=== PATIENT | male | born 1965 | race American Indian/Alaskan Native ===

== ENCOUNTER 2019-07-16 13:30 | Emergency (ER) | payer MEDICAID ==
--- NOTE | 2019-07-16 14:29 | ED Physician Documentation ---
PD HPI HEENT - Stated complaint Stated Complaint: LT SIDE FACE PAIN - Chief complaint Chief Complaint: Heent - History obtained from History obtained from: Patient - History of Present Illness Timing - onset: Yesterday (Dental pain since yesterday. He has known cavities but missed an appointment with his dentist because his grazhm-xg-ibe is dying. No facial swelling or fevers.) Review of Systems Constitutional: denies: Fever, Chills Nose: denies: Rhinorrhea / runny nose, Congestion Throat: reports: Dental pain / toothache. denies: Sore throat PD PAST MEDICAL HISTORY - Present Medications Home Medications: Ambulatory Orders Medication Instructions Recorded Confirmed Clindamycin HCl [Clindamycin 300MG 300 mg PO Q6H #40 capsule 07/16/19 CAP] Oxycodone HCl/Acetaminophen 1 - 2 each PO Q6H PRN #14 tablet 07/16/19 [Percocet 5-325 mg Tablet] - Allergies Allergies/Adverse Reactions: Allergies Allergy/AdvReac Type Severity Reaction Status Date / Time Penicillins Allergy Unknown Verified 07/16/19 13:39 PD ED PE NORMAL - Vitals Vital signs reviewed: Yes - General General: Alert and oriented X 3, No acute distress - HEENT HEENT: Other (Generally poor dentition with a lot of cavities; Tender Last Maxillary molar, no facial swelling or trismus.) - Neck Neck: Supple, no meningeal sign, No bony TTP - Neuro Neuro: Alert and oriented X 3, Normal speech - Psych Psych: Normal mood Results - Vitals Vitals: Vital Signs - 24 hr 07/16/19 13:39 Temperature 36.5 C Heart Rate 68 Respiratory 14 Rate Blood Pressure 180/90 H O2 Saturation 99 Oxygen O2 Source Room air Departure - Departure Disposition: 01 Home, Self Care Clinical Impression: Pain due to dental caries Condition: Good Record reviewed to determine appropriate education?: Yes Instructions: ED Tooth Pain Prescriptions: Clindamycin HCl [Clindamycin 300MG CAP] 300 mg PO Q6H #40 capsule Oxycodone HCl/Acetaminophen [Percocet 5-325 mg Tablet] 1 - 2 each PO Q6H PRN #14 tablet PRN Reason: pain Comments: It is very important that you follow-up with a dentist. When it comes to dental problems like yours, the emergency department can only offer a short-term solution to your long-term problem. A couple of low cost options for dental care include: [facility] in [place], calls [phone] for an appointment Or [facility] in [place], call [phone] for an appointment. Do not drink or drive while taking narcotic pain medication. Note that many narcotic pain relievers also contain Tylenol/acetaminophen. Please ensure that your total dose of acetaminophen from all sources does not exceed 3 g (3000 mg) per day. You may get constipated while on this medication. Take a stool softener such as Colace twice a day while you are on it. Also add an buas-icg-ezkevtk laxative such as senna or MiraLAX on any day that you do not have a bowel movement. If you received a narcotic pain medication or sedative while in the emergency department, do not drive for the next 24 hours. Your blood pressure was elevated today on check into the emergency department. This does not mean that you have hypertension, it is a common phenomenon to come to the emergency department and have elevated blood pressure. I recommend that you see your primary care physician within the week to have it rechecked when you are feeling better.
[2019-07-16 14:43] VITALS: BP 169/97
== END 2019-07-16 14:46 | disposition home or self-care (01) ==
LOC: ED 13:30
DX: K02.9 Dental caries, unspecified (principal); R03.0 Elevated blood-pressure reading, without diagnosis of hypertension
CPT/HCPCS: 99282; 99284

== ENCOUNTER 2020-01-19 14:48 | Emergency (ER) | payer MEDICAID ==
[2020-01-19 14:57] VITALS: BP 164/85
--- NOTE | 2020-01-19 15:16 | ED Physician Documentation ---
PD [facility] HEENT - Stated complaint Stated Complaint: TOOTH PAIN - Chief complaint Chief Complaint: Heent - History obtained from History obtained from: Patient - History of Present Illness Timing - onset: How many weeks ago (12) Timing - duration: Months Timing - details: Gradual onset, Waxing and waning Pain level max: 10 Pain level now: 8 Location: Tooth Improves: Medication Worsens: Other (chewing, cold air, breathing) Associated symptoms: No: Fever, Congestion, Trismus, Unable to swallow, Facial swelling, Headache Similar symptoms before: Diagnosis - Additional information Additional information: 54-year-old male presents to the emergency department with about 3 months worth of tooth pain in his upper mouth. Patient reports that prior to the ID- pandemic he was scheduled to see a dentist to have fillings replaced or crown removed however with his appointments have been canceled. Since then he has had pretty chronic pain that is waxed and waned and has occasionally improved with a course of antibiotics. He has a dental appointment pending in 4 days. However over the last 48 hours the pain in tooth #7 and #1 has become excruciating. He is taken nearly 3000 mg of ibuprofen and 3500 mg of Tylenol without relief. He has also attempted pjyt-wtv-[id number] Orajel. He has no fevers, no trismus. he has normal swallowing and normal phonation. Review of Systems Constitutional: denies: Fever, Chills, Myalgias Nose: denies: Rhinorrhea / runny nose, Epistaxis Throat: reports: Dental pain / toothache. denies: Oral lesions / sores, Sore throat Cardiac: denies: Chest pain / pressure, Palpitations Respiratory: denies: Dyspnea, Cough GI: denies: Abdominal Pain : denies: Dysuria Skin: denies: Rash, Lesions Musculoskeletal: denies: Neck pain, Back pain PD PAST MEDICAL HISTORY - Present Medications Home Medications: Ambulatory Orders Medication Instructions Recorded Confirmed Clindamycin HCl [Clindamycin 300MG 300 mg PO Q6H #40 capsule 07/16/19 CAP] Oxycodone HCl/Acetaminophen 1 - 2 each PO Q6H PRN #14 tablet 07/16/19 [Percocet 5-325 mg Tablet] Cephalexin [Keflex] 500 mg PO Q6H #28 capsule 01/19/20 Hydrocodone/Acetaminophen [Hayward 1 each PO BID #8 tablet 01/19/20 5-325 Tablet] - Allergies Allergies/Adverse Reactions: Allergies Allergy/AdvReac Type Severity Reaction Status Date / Time Penicillins Allergy Unknown Verified 01/19/20 14:57 PD ED PE NORMAL - General General: Alert and oriented X 3, No acute distress, Well developed/nourished - HEENT HEENT: PERRL, EOMI, Other (Patient has globally abnormal dentition. Multiple caries. There is gumline swelling and fluctuance above tooth #7. Tooth #1 with extensive decay and cracking.No swelling or trismus. Patient has normal phonation and normal swallow) - Neck Neck: No adenopathy - Cardiac Cardiac: RRR, No murmur - Respiratory Respiratory: No respiratory distress Results - Vitals Vitals: Vital Signs - 24 hr 01/19/20 14:55 Temperature 36.3 C L Heart Rate 75 Respiratory 16 Rate Blood Pressure 164/85 H O2 Saturation 96 Oxygen O2 Source Room air PD MEDICAL DECISION MAKING - ED course Complexity details: re-evaluated patient, d/w patient ED course: 54-year-old gentleman presents to the emergency department with about 3 months duration of tooth pain in the upper jaw. - He has a pending dental appointment on Friday which is in 5 days. - Patient has a evidence of gumline swelling and abscess above tooth #1. We will start him on antibiotic. - Advise close follow-up with a dentist on Friday as scheduled. - We will also prescribe a very limited number of Hayward to help with analgesia until he is able to see the dentist. - We had extensive discussion regarding appropriate use of [id number]-[id number] Tylenol and ibuprofen to prevent toxicity Departure - Departure Disposition: 01 Home, Self Care Clinical Impression: Dental abscess, Pain due to dental caries Condition: Stable Record reviewed to determine appropriate education?: Yes Instructions: ED Tooth Pain, ED Cavity Dental Prescriptions: Cephalexin [Keflex] 500 mg PO Q6H #28 capsule Hydrocodone/Acetaminophen [Hayward 5-325 Tablet] 1 each PO BID #8 tablet Comments: Walt do not miss the appointment with your dentist on Friday. It looks like you have a new abscess forming in the front of your mouth. So I prescribed antibiotics for this. Please take as directed. Please limit the amount of Tylenol and ibuprofen you are using at home over use of these medications can cause kidney and liver damage. I have prescribed a very limited number of Hayward to help with pain. Use very sparingly the emergency department cannot refill. Return to the emergency department if you have fevers, facial swelling, cannot talk or swallow normally.
== END 2020-01-19 15:22 | disposition home or self-care (01) ==
LOC: ED 14:48
DX: K04.7 Periapical abscess without sinus (principal); K02.9 Dental caries, unspecified
CPT/HCPCS: 99282; 99284

== ENCOUNTER 2020-08-14 17:12 | Outpatient (CLI) | payer MEDICAID | END 2020-08-14 17:13 | disposition home or self-care (01) | LOC: COV 17:12 | PROVIDERS: ATTEND Family Medicine | DX: Z20.822 Contact with and (suspected) exposure to COVID-19 (principal) ==

== ENCOUNTER 2021-02-17 13:35 | Emergency (ER) | payer MEDICAID ==
[2021-02-17 17:01] VITALS: BP 153/75
[2021-02-17] MEDS ORDERED: BACITRACIN ZINC OINT 1 PACKET TOP STA (17:06)
[2021-02-17] MEDS ORDERED: LIDOCAINE 1% 2 ML VIAL MC ONE (17:06)
[2021-02-17] MEDS ORDERED: TETANUS/DIPHTHERIA/PERTUSSIS 0.5 ML SYRINGE IM ONE (17:06)
[2021-02-17] MEDS ORDERED: cefTRIAXone 1 GM VIAL IM STA (17:06)
--- NOTE | 2021-02-17 17:09 | ED Physician Documentation ---
History of Present Illness - Stated complaint Stated Complaint: SWELLING RT ARM - Chief complaint Chief Complaint: Wound - Additonal information Additional information: 56-year-old male presents emergency department for evaluation of a right mid forearm infection. Reports that he noted a small pimple yesterday at the site where he previously had a Bug bite. When he woke up this morning there was a large dome of purulence, increased erythema as well as red streaking extending up the arm. He denies any fevers. Unsure of his last tetanus. Review of Systems Constitutional: denies: Fever Nose: reports: Reviewed and negative Throat: reports: Reviewed and negative Cardiac: reports: Reviewed and negative Respiratory: reports: Reviewed and negative GI: reports: Reviewed and negative Skin: reports: Lesions (Right forearm) Musculoskeletal: reports: Reviewed and negative Neurologic: reports: Reviewed and negative PD PAST MEDICAL HISTORY - Past Surgical History Past Surgical History: No - Present Medications Home Medications: Ambulatory Orders Medication Instructions Recorded Confirmed Sulfamethox/Trimeth 800/160 1 each PO BID #14 tablet 02/17/21 [Bactrim Ds 800/160] - Allergies Allergies/Adverse Reactions: Allergies Allergy/AdvReac Type Severity Reaction Status Date / Time Penicillins Allergy Unknown Unknown Verified 02/17/21 17:03 - Social History Does the pt smoke?: Yes Smoking Status: Heavy tobacco smoker Does the pt drink ETOH?: Yes Does the pt have substance abuse?: No - POLST Patient has POLST: No PD ED PE EXPANDED - General General: Alert, No acute distress - Cardiac Cardiac: Regular Rate, Radial strong equal, Pedal strong equal, Cap refill < 2 sec. No: Murmur Present - Respiratory Respiratory: Clear to ausultation sam. No: Distress, Labored - Abdomen Abdomen: Normal Bowel sounds. No: Tender to palpation - Derm Derm: Normal color, Warm and dry, Other (Small purulent dome on the right midforearm unroofed with purulence. There is no abscess formation. Area of erythema and induration 3 x 5 cm with lymphangitis streaking up the forearm) Results - Vitals Vitals: Vital Signs - 24 hr 02/17/21 02/17/21 13:53 17:00 Temperature 36.9 C 36.6 C Heart Rate 80 80 Respiratory 15 18 Rate Blood Pressure 141/90 H 153/75 H O2 Saturation 99 97 Oxygen O2 Source Room air PD MEDICAL DECISION MAKING - ED course Complexity details: reviewed results, re-evaluated patient, d/w family ED course: 56-year-old male presents emergency department for evaluation of a right forearm Infection with some associated lymphangitis. There have been no fevers and he otherwise appears unremarkable sparing mild hypertension. Patient was given a gram of ceftriaxone here in the emergency department and will be started on Bactrim twice daily for the next week. Advised mupirocin ointment as well as warm compress. Emergent return precautions discussed. Departure - Departure Disposition: Home, Self Care Clinical Impression: Cellulitis of right forearm, Acute lymphangitis of right forearm Condition: Stable Record reviewed to determine appropriate education?: Yes Instructions: ED Staph Infec Abx Tx Only Prescriptions: Sulfamethox/Trimeth 800/160 [Bactrim Ds 800/160] 1 each PO BID #14 tablet Comments: Walt you have an infection in your right forearm. You were given your first injection of antibiotics here in the emergency department. Please fill the prescription for the oral antibiotics and take as directed. Please a warm compress over the infection for 10 minutes 3 times a day then apply any an tibiotic ointment and a simple bandage over the open skin. If you develop any fevers, have increased pain fevers worsening red streaking then please return to the ER for a second evaluation.
== END 2021-02-17 17:28 | disposition home or self-care (01) ==
LOC: ED 13:35
DX: L03.113 Cellulitis of right upper limb (principal); Z72.0 Tobacco use; Z23 Encounter for immunization
CPT/HCPCS: 90471; 90715; 96372; 99283; 99284; A9270

== ENCOUNTER 2021-05-18 17:48 | Emergency (ER) | payer MEDICAID ==
[2021-05-18 18:01] VITALS: BP 182/93
--- NOTE | 2021-05-18 18:04 | ED Physician Documentation ---
History of Present Illness - Stated complaint Stated Complaint: TOOTH PX - Chief complaint Chief Complaint: Heent - History obtained from History obtained from: Patient - Additonal information Additional information: Patient presents with several days of left upper and lower molar dental pain. He has been swishing with salt water and taking ibuprofen and Tylenol without relief. He has not had any facial pain or erythema, no fever or chills or flulike symptoms. Patient aware that he needs to get into a dentist but was unable to do so today due to work and plans to follow-up on Friday. Review of Systems Ten Systems: 10 systems reviewed and negative Throat: reports: Dental pain / toothache PD PAST MEDICAL HISTORY - Past Medical History Past Medical History: No - Past Surgical History Past Surgical History: No - Present Medications Home Medications: Ambulatory Orders Medication Instructions Recorded Confirmed Sulfamethox/Trimeth 800/160 1 each PO BID #14 tablet 02/17/21 [Bactrim Ds 800/160] Clindamycin [Cleocin] 300 mg PO Q6H 7 Days #20 05/18/21 HYDROcod/ACETAM 5/325 [Saltillo 5/325] 1 - 2 tablet PO Q6H PRN #10 tablet 05/18/21 - Allergies Allergies/Adverse Reactions: Allergies Allergy/AdvReac Type Severity Reaction Status Date / Time Penicillins Allergy Unknown Unknown Verified 05/18/21 18:01 - Social History Does the pt smoke?: Yes Smoking Status: Heavy tobacco smoker Does the pt drink ETOH?: Yes Does the pt have substance abuse?: No - POLST Patient has POLST: No PD ED PE NORMAL - Vitals Vital signs reviewed: Yes - General General: Alert and oriented X 3, No acute distress, Well developed/nourished - HEENT HEENT: Atraumatic, Pharynx benign, Other (Generally poor dentition, number missing teeth and cavities. There are some mild erythema around the left upper gum, no facial swelling or palpable abscess, no facial erythema) - Neck Neck: Supple, no meningeal sign, No JVD - Cardiac Cardiac: RRR, No murmur - Respiratory Respiratory: No respiratory distress, Clear bilaterally Results - Vitals Vitals: Vital Signs - 24 hr 05/18/21 17:58 Temperature 37.1 C Heart Rate 76 Respiratory 16 Rate Blood Pressure 182/93 H O2 Saturation 97 Oxygen O2 Source Room air PD MEDICAL DECISION MAKING - ED course Complexity details: d/w patient ED course: Patient presents with dental pain. He was advised of the need to follow-up with a dentist at the next visit appointment early next week, will give a short-term prescription for [place] as well as clindamycin in the meantime. The patient may also take ibuprofen. He was advised to continue swishing with salt water, avoid hot or cold foods on that side, avoid chewing on that side. Return if he develops facial swelling or erythema, fever or other new concerns. Departure - Departure Disposition: 01 Home, Self Care Clinical Impression: Pain, dental Condition: Good Instructions: ED Tooth Pain Prescriptions: Clindamycin [Cleocin] 300 mg PO Q6H 7 Days #20 HYDROcod/ACETAM 5/325 [[place] 5/325] 1 - 2 tablet PO Q6H PRN #10 tablet PRN Reason: Pain Comments: You presented with dental pain. You may be developing a left upper gum infection. Start on antibiotics as we discussed, continue swishing with warm salt water, avoid chewing on that side and avoid cold foods. I have given you limited number of [place] which is a narcotic pain medication to help with the pain. You should not drive or operate heavy machinery on this medicine, you should not take any other respiratory suppressants while on this medication. Narcotic pain medication can be addictive, it is important to use appropriately and it is a violation of federal law to share this medication with other people. He may take ibuprofen as needed in addition to this medication. It is imperative that you follow-up with your dentist next week.
== END 2021-05-18 18:22 | disposition home or self-care (01) ==
LOC: ED 17:48
DX: K08.89 Other specified disorders of teeth and supporting structures (principal); K02.9 Dental caries, unspecified; F17.200 Nicotine dependence, unspecified, uncomplicated
CPT/HCPCS: 99282; 99283